=== PATIENT | male | born 1955 | race Caucasian/White ===

== ENCOUNTER 2019-01-24 06:01 | Observation (INO) | payer OTHER ==
[~2019-01-24 06:01] MED LIST: DEXAMETHASONE SOD PHOSPHATE 10 MG/ML 1 ML VIAL IV ONE; HEPARIN SODIUM,PORCINE 5,000 UNIT/ML 1 ML VIAL SQ ONE; LIDOCAINE 1% 20 ML VIAL (10MG/ML) FOR IV START INTRADERMA PRN; MIDAZOLAM 2 MG/2 ML VIAL IV PRN; ONDANSETRON 4 MG/2 ML VIAL IVP ONE; SCOPOLAMINE 1.5MG/72HR PATCH TRANSDERM ONE
[2019-01-24] MEDS: LACTATED RINGERS 1,000 ML IV SCH ×2 (06:35→16:51)
[2019-01-24] MEDS ORDERED: GLYCOPYRROLATE 0.2 MG/ML 2 ML VIAL ONE (07:41)
[2019-01-24] MEDS ORDERED: SUCCINYLCHOLINE CHLORIDE 100 MG/5 ML SYR IV ONE (07:41)
[2019-01-24] MEDS ORDERED: VECURONIUM 10 MG VIAL IV ONE (07:41)
[2019-01-24] MEDS ORDERED: PROPOFOL 10 MG/ML 20 ML VIAL IV ONE (07:41)
[2019-01-24] MEDS ORDERED: NEOSTIGMINE 1 MG/ML 10 ML VIAL ONE (07:41)
[2019-01-24] MEDS ORDERED: fentaNYL (PF) 50 MCG/ML 2 ML AMP ONE (07:41)
[2019-01-24] MEDS ORDERED: MIDAZOLAM 2 MG/2 ML VIAL ONE (07:41)
[2019-01-24] MEDS ORDERED: LIDOCAINE 1% INJ 10MG/ML (20 ML MDV) ONE (07:41)
--- NOTE | 2019-01-24 07:53 | P.GSHP ---
History of Present Illness H&P Date: 01/24/19 Chief Complaint: Umbilical hernia This is a 64-year-old male who presents today for laparoscopic robotic-assisted repair of umbilical hernia. Patient developed a tender mass of the umbilicus. Past Medical History Past Medical History: Hypertension, Thyroid Disorder History of Any Multi-Drug Resistant Organisms: None Reported Past Surgical History: Hernia Repair Past Anesthesia/Blood Transfusion Reactions: No Reported Reaction Past Psychological History: No Psychological Hx Reported Smoking Status: Never smoker Past Alcohol Use History: None Reported Past Drug Use History: None Reported - Past Family History Mother Family Medical History: No Reported History Medications and Allergies Home Medications Medication Instructions Recorded Confirmed Type Levothyroxine Sodium [Synthroid] 50 mcg PO QAM 01/18/19 01/24/19 History amLODIPine BESYLATE/BENAZEPRIL 1 cap PO BID 01/18/19 01/24/19 History [Lotrel 5-20 MG] Allergies Allergy/AdvReac Type Severity Reaction Status Date / Time codeine AdvReac Nausea Verified 01/24/19 06:19 Surgical - Exam Vital Signs Temp Pulse Resp BP Pulse Ox 98.6 F 83 18 144/87 95 01/24/19 06:33 01/24/19 06:33 01/24/19 06:33 01/24/19 06:33 01/24/19 06:33 - General well developed, well nourished, no distress - Eyes PERRL - ENT normal pinna - Neck no masses - Respiratory normal expansion - Cardiovascular Rhythm: regular - Abdomen Abdomen: soft, non tender Hernia: umbilical (3 cm) Assessment and Plan Assessment: Umbilical hernia. We'll perform laparoscopic robotic-assisted repair.
[2019-01-24] MEDS ORDERED: BUPIVACAIN-EPI 0.25%-1:200,000 30 ML VIAL SQ ONE ×2 (07:55→08:13)
--- NOTE | 2019-01-24 09:05 | P.OP ---
Date of Procedure: 01/24/19 Preoperative Diagnosis: Umbilical hernia Postoperative Diagnosis: Incarcerated umbilical hernia Procedure(s) Performed: Laparoscopic robotic Incarcerated umbilical hernia Partial omentectomy Anesthesia: COURTNEYA Surgeon: Rah Lange Estimated Blood Loss (ml): 5 Pathology: other (Incarcerated fat and omentum) Condition: stable Disposition: PACU Description of Procedure: The patient was placed on the operating table in the supine position. He received general anesthesia. His abdomen was prepped and draped usual fashion. Using a 5 mm optical trocar under direct visualization the peritoneal cavity was entered in the left upper quadrant. The abdomen was then insufflated. The laparoscope was placed back into the perineal cavity. Next a 8 mm robotic trocar was placed in the left lower quadrant and a 12 mm robotic trocar was placed in the left lateral position. The original 5 mm trocar was exchanged for a 8 mm robotic trocar. The patient's placed in the left side up position. And the patient was undocked the robot. The umbilical hernia was visualized. Using hook cautery the peritoneum over the umbilical hernia was excised. The incarcerated fat and omentum was dissected using the hook cautery and sent to pathology. The fascial opening was repaired using 0V LOC suture. Next a piece of 11 cm round ventral light ST mesh was placed into the. Cavity and secured with 2 OV lock suture. The patient was undocked the robot. The needles were retrieved. The fascia of the 12 mm trocar site was closed with 0 Ethibond suture. Skin was closed interrupted 3-0 Monocryl suture. Dermabond dressings was applied. Patient top procedure well and was sent to recovery room stable condition.
[2019-01-24] MEDS: HYDROmorphone 0.5 MG/0.5 ML SYRINGE IVP PRN ×4 (09:18→19:55)
[2019-01-24] MEDS: fentaNYL (PF) 50 MCG/ML 2 ML AMP IVP ONE ×2 (09:30→09:39)
[2019-01-24] MEDS ORDERED: HYDROmorphone 0.5 MG/0.5 ML SYRINGE IVP ONE ×2 (10:45→11:15)
[2019-01-24] MEDS ORDERED: HYDROcodone/APAP 5-325MG 1 EACH TAB PO ONE (12:54)
[2019-01-24 16:19] VITALS: BMI 24.7
[2019-01-24] MEDS ORDERED: NALOXONE 0.4 MG/ML 1 ML VIAL IV PRN (16:23)
[2019-01-24] MEDS ORDERED: METOCLOPRAMIDE 5 MG/ML 2 ML VIAL IVP PRN (16:23)
[2019-01-24] MEDS ORDERED: LACTATED RINGERS 1,000 ML IV ONE (16:23)
[2019-01-24] MEDS: ONDANSETRON 4 MG/2 ML VIAL IVP PRN (16:56)
[2019-01-24] MEDS: amLODIPine 5 MG TAB PO SCH (19:55)
[2019-01-25] MEDS: ONDANSETRON 4 MG/2 ML VIAL IVP PRN (01:06)
[2019-01-25] MEDS: HYDROmorphone 0.5 MG/0.5 ML SYRINGE IVP PRN ×2 (01:06→11:10)
[2019-01-25] MEDS: LEVOTHYROXINE 50 MCG TAB PO SCH (05:38)
[2019-01-25] MEDS: HYDROcodone/APAP 5-325MG 1 EACH TAB PO PRN ×2 (07:35→18:51)
[2019-01-25] MEDS: amLODIPine 5 MG TAB PO SCH ×2 (07:37→20:32)
[2019-01-25] MEDS: ENOXAPARIN 40 MG/0.4 ML SYRINGE SQ SCH (07:37)
[2019-01-25] MEDS: LISINOPRIL 20 MG TAB PO SCH (07:37)
--- NOTE | 2019-01-25 11:42 | P.PN ---
Subjective Progress Note Date: 01/25/19 CHIEF COMPLAINT: Umbilical hernia HISTORY OF PRESENT ILLNESS: Patient is status post laparoscopic robotic repair of incarcerated umbilical hernia. Postop day #1. Patient is tolerating diet without nausea or vomiting. He continues to report significant abdominal pain this morning. Vital signs stable. PHYSICAL EXAM: VITAL SIGNS: Reviewed. GENERAL: Well-developed in no acute distress. HEENT: No sclera icterus. Extraocular movements grossly intact. Moist buccal mucosa. Head is atraumatic, normocephalic. ABDOMEN: Soft. Nondistended. Surgical sites clean dry and intact without drainage or signs of infection. NEUROLOGIC: Alert and oriented. Cranial nerves II through XII grossly intact. ASSESSMENT: 1. Status post upper septic robotic repair of incarcerated umbilical hernia PLAN: 1. Continue diet as tolerated 2 . Pain control 3. Incentive spirometry 4. Activity as tolerated 5. Discharge home tomorrow Nurse practitioner note has been reviewed by physician. Signing provider agrees with the documented findings, assessment, and plan of care. Objective - Vital Signs Vital signs: Vital Signs Temp 97.4 F L 01/25/19 07:00 Pulse 60 01/25/19 07:00 Resp 16 01/25/19 08:00 BP 136/77 01/25/19 07:00 Pulse Ox 92 L 01/25/19 07:00 Intake & Output 01/24/19 01/25/19 01/25/19 18:59 06:59 18:59 Intake Total 2049 Output Total 5 675 550 Balance 5 -675 -550 Intake: IV 2049 Output: Urine 675 550 Estimated Blood Loss 5 Other: Voiding Method Urinal Toilet Urinal # Voids 1
[2019-01-25] MEDS: KETOROLAC 30 MG/ML 1 ML VIAL IVP PRN ×2 (15:42→22:09)
[2019-01-25] MEDS: LACTATED RINGERS 1,000 ML IV SCH (20:33)
--- NOTE | 2019-01-25 21:56 | P.CONS ---
History of Present Illness - Reason for Consult Consult date: 01/25/19 - History of Present Illness Patient is a pleasant 64-year-old white male who admitted to the hospital status post laparoscopic robotic-assisted umbilical hernia repair. Patient presented to the office earlier with a painful reproducible umbilical hernia which seem to be enlarging over the past several months. Elected to undergo robotic-assisted surgery today and is doing quite well. He is healing with no particular complaints at this time he is on clear liquid diet and seems to be tolerating well. Review of Systems GENERAL: Patient denies fever. Denies chills. EYES: Denies blurred vision. Denies vision changes. Denies eye pain. EARS, NOSE, MOUTH, & THROAT: Denies headache. Denies sore throat. Denies ear pain. RESPIRATORY: Denies cough. Denies shortness of breath. Denies sputum production. Denies hemoptysis. CARDIOVASCULAR: Denies chest pain or pressure. Denies palpitations. Denies arrhythmias. Admits to hypertension GASTROINTESTINAL: Denies abdominal pain. Denies diarrhea. Denies constipation. Denies nausea. Denies vomiting. Denies heartburn. Denies blood in the stool. GENITOURINARY: Denies urinary frequency. Denies burning. Denies dysuria. Denies cloudy urine. Denies blood in the urine. MUSCULOSKELETAL: Denies myalgias. Denies joint swelling. Denies decreased range of motion beyond patients baseline. INTEGUMENTARY: Denies pruitis. Denies rash. PSYCHIATRIC: Denies suicidal or homicial ideations. ENDOCRINE: Denies weight change. Denies polydipsia. Denies polyuria. Admits to underactive thyroid. HEMATOLOGIC: Denies bleeding disorders. Past Medical History Past Medical History: Hypertension, Thyroid Disorder History of Any Multi-Drug Resistant Organisms: None Reported Past Surgical History: Hernia Repair Past Anesthesia/Blood Transfusion Reactions: No Reported Reaction Past Psychological History: No Psychological Hx Reported Smoking Status: Never smoker Past Alcohol Use History: None Reported Past Drug Use History: None Reported - Past Family History Mother Family Medical History: No Reported History Medications and Allergies Home Medications Medication Instructions Recorded Confirmed Type Levothyroxine Sodium [Synthroid] 50 mcg PO QAM 01/18/19 01/25/19 History amLODIPine BESYLATE/BENAZEPRIL 1 cap PO BID 01/18/19 01/25/19 History [Lotrel 5-20 MG] Docusate [Colace] 100 mg PO BID #20 capsule 01/24/19 Rx HYDROcodone/APAP 5-325MG [[place] 1 tab PO Q6HR PRN #10 tab 01/24/19 Rx 5-325] Allergies Allergy/AdvReac Type Severity Reaction Status Date / Time codeine AdvReac Nausea Verified 01/25/19 17:23 Physical Exam Osteopathic Statement: *. No significant issues noted on an osteopathic structural exam other than those noted in the History and Physical/Consult. Vitals: Vital Signs Temp Pulse Pulse Resp BP Pulse Ox 01/25/19 19:10 97.8 F 62 18 135/76 92 L 01/25/19 14:29 98.2 F 58 L 16 130/78 92 L 01/25/19 08:00 16 01/25/19 07:00 97.4 F L 60 16 136/77 92 L 01/25/19 01:33 97.7 F 63 17 137/75 93 L Intake and Output 01/25/19 01/25/19 01/25/19 06:59 14:59 22:59 Intake Total 540 Output Total 475 1100 250 Balance -475 -1100 290 Intake: Oral 540 Output: Urine 475 1100 250 Other: Voiding Method Toilet Urinal # Voids 1 GENERAL: This is a -64 year-old in no apparent distress at the time of examination. Pleasant and cooperative. HEENT: Head is atraumatic, normocephalic. Pupils are equal, round, and reactive to light. Sclerae anicteric. Conjunctivae are clear. Mucus membranes of the mouth are moist. Neck is supple. RESPIRATORY: Clear to auscultation. No wheezes, rales, or rhonchi. No use of accessory muscles. Patient maintaining oxygen saturation greater than 92%. No chest wall tenderness is noted on palpation or with deep breathing. CARDIOVASCULAR: Regular rate and rhythm. S1 and S2 noted. No systolic or diastolic murmur auscultated. No JVD noted. No S3 or S4 noted. GASTROINTESTINAL: No distention noted. Abdomen soft and round. With 4 small incisions noted are clean and dry. Positive tenderness over the entire abdomen. Surgical incisions. INTEGUMENTARY: No cyanosis. No jaundice. No rashes noted. No cellulitis noted. EXTREMITIES: 2+ peripheral pulses. No evidence of peripheral edema. No calf tenderness noted. NEUROLOGIC: Cranial nerves II-XII intact. PSYCHIATRIC: Awake, alert, and oriented X 3. Appropriate affect. Intact judgement and insight. Assessment and Plan (1) Hypertension, well controlled Current Visit: Yes Status: Acute Code(s): I10 - ESSENTIAL (PRIMARY) HYPERTENSION SNOMED Code(s): 219019415 (2) Hypothyroidism Current Visit: Yes Status: Acute Code(s): E03.9 - HYPOTHYROIDISM, UNSPECIFIED SNOMED Code(s): 61915765 (3) Umbilical hernia Current Visit: Yes Status: Acute Code(s): K42.9 - UMBILICAL HERNIA WITHOUT OBSTRUCTION OR GANGRENE SNOMED Code(s): 066483566 Plan: . Continue to follow patient's progress after surgery. DVT prophylaxis pain control early ambulation remain in progress. Resume home medications. Monitor for any changes in current medical condition. End dictation
[2019-01-26] MEDS: HYDROcodone/APAP 5-325MG 1 EACH TAB PO PRN (02:00)
[2019-01-26] MEDS: LEVOTHYROXINE 50 MCG TAB PO SCH (05:10)
[2019-01-26 07:43] VITALS: BP 148/74; PULSE 68; RESP 16; TEMP 97.9
[2019-01-26] MEDS: KETOROLAC 30 MG/ML 1 ML VIAL IVP PRN (08:47)
[2019-01-26] MEDS: LISINOPRIL 20 MG TAB PO SCH (08:47)
[2019-01-26] MEDS: amLODIPine 5 MG TAB PO SCH (08:48)
[2019-01-26] MEDS: ENOXAPARIN 40 MG/0.4 ML SYRINGE SQ SCH (08:48)
--- NOTE | 2019-01-26 09:57 | P.DS ---
Providers Date of admission: 01/25/19 16:47 Expected date of discharge: 01/26/19 Attending physician: Rah Lange Consults: 01/24/19 16:23 Consult Physician Routine Consulting Provider: Raad Cordova Consult Reason/Comments: Medical management Do you want consulting provider notified?: Yes Primary care physician: Raad Cordova Hospital Course: Patient is status post laparoscopic robotic repair of incarcerated umbilical hernia. Patient is doing well postoperatively without any immediate complications. Tolerating diet without nausea or vomiting. Pain controlled on oral medications. Vital signs have been stable. He is stable for discharge home today. Please see EMR for further hospital course details. Discharge Diagnosis: 1. Status post laparoscopic robotic repair of incarcerated umbilical hernia Nurse practitioner note has been reviewed by physician. Signing provider agrees with the documented findings, assessment, and plan of care. Patient Condition at Discharge: Stable Plan - Discharge Summary Discharge Rx Participant: Yes New Discharge Prescriptions: New Docusate [Colace] 100 mg PO BID #20 capsule HYDROcodone/APAP 5-325MG [[place] 5-325] 1 tab PO Q6HR PRN #10 tab PRN Reason: Pain No Action Levothyroxine Sodium [Synthroid] 50 mcg PO QAM amLODIPine BESYLATE/BENAZEPRIL [Lotrel 5-20 MG] 1 cap PO BID Discharge Medication List Levothyroxine Sodium [Synthroid] 50 mcg PO QAM 01/18/19 [History] amLODIPine BESYLATE/BENAZEPRIL [Lotrel 5-20 MG] 1 cap PO BID 01/18/19 [History] Docusate [Colace] 100 mg PO BID #20 capsule 01/24/19 [Rx] HYDROcodone/APAP 5-325MG [[place] 5-325] 1 tab PO Q6HR PRN #10 tab 01/24/19 [Rx] Follow up Appointment(s)/Referral(s): Raad Cordova DO [Primary Care Provider] - 02/02/19 1:40 pm Rah Lange MD [STAFF PHYSICIAN] - 02/01/19 1:50 pm Patient Instructions/Handouts: *Surgery [facility] - (Anesthesia) Discharge Instructions Outpatient Surgery, Umbilical Hernia Repair (DC) Activity/Diet/Wound Care/Special Instructions: No driving while taking [place] No lifting over 10 pounds You may shower. No soaking or tub baths Very light activity until you are reevaluated at your follow up appointment with your surgeon
--- NOTE | 2019-01-26 17:02 | P.PN ---
Subjective Progress Note Date: 01/26/19 Patient is a pleasant 64-year-old white male who admitted to the hospital status post laparoscopic robotic-assisted umbilical hernia repair. Patient presented to the office earlier with a painful reproducible umbilical hernia which seem to be enlarging over the past several months. Elected to undergo robotic-assisted surgery today and is doing quite well. He is healing with no particular complaints at this time he is on clear liquid diet and seems to be tolerating well. 01/26/2019 pain controlled. Tolerating diet with no nausea vomiting or diarrhea. Passing flatus. Vital signs stable. Afebrile. Denies lightheadedness dizziness or focal deficits. Denies chest pain, palpitations or shortness of breath. Objective - Vital Signs Vital signs: Vital Signs Temp 97.9 F 01/26/19 07:00 Pulse 68 01/26/19 07:00 Resp 16 01/26/19 07:00 BP 148/74 01/26/19 07:00 Pulse Ox 94 L 01/26/19 07:00 Intake & Output 01/25/19 01/26/19 01/26/19 18:59 06:59 18:59 Intake Total 1080 Output Total 1100 725 350 Balance -1100 355 -350 Intake: Oral 1080 Output: Urine 1100 725 350 Other: Voiding Method Toilet Urinal # Voids 1 - Exam GENERAL: This is a -64 year-old in no apparent distress at the time of examination. Pleasant and cooperative. HEENT: Head is atraumatic, normocephalic. Pupils are equal, round, and reactive to light. Sclerae anicteric. Conjunctivae are clear. Mucus membranes of the mouth are moist. Neck is supple. RESPIRATORY: Clear to auscultation. No wheezes, rales, or rhonchi. No use of accessory muscles. No chest wall tenderness is noted on palpation or with deep breathing. CARDIOVASCULAR: Regular rate and rhythm. S1 and S2 noted. No systolic or diastolic murmur auscultated. No JVD noted. No S3 or S4 noted. GASTROINTESTINAL: No distention noted. Abdomen soft and round. With 4 small incisions noted are clean and dry. Positive tenderness over the entire abdomen. Surgical incisions. INTEGUMENTARY: No cyanosis. No jaundice. No rashes noted. No cellulitis noted. EXTREMITIES: 2+ peripheral pulses. No evidence of peripheral edema. No calf tenderness noted. NEUROLOGIC: Cranial nerves II-XII intact. PSYCHIATRIC: Awake, alert, and oriented X 3. Appropriate affect. Intact judgement and insight. Assessment and Plan Assessment: (1) Hypertension, well controlled Current Visit: Yes Status: Acute Code(s): I10 - ESSENTIAL (PRIMARY) HYPERTENSION SNOMED Code(s): 750725295 (2) Hypothyroidism Current Visit: Yes Status: Acute Code(s): E03.9 - HYPOTHYROIDISM, UNSPECIFIED SNOMED Code(s): 81472170 (3) Umbilical hernia, status post laparoscopic robotic repair Current Visit: Yes Status: Acute Code(s): K42.9 - UMBILICAL HERNIA WITHOUT OBSTRUCTION OR GANGRENE SNOMED Code(s): 827063327 Plan: Continue on current medication regime, monitoring and symptomatically treatment. Discharge planning in progress for today as per surgery. Follow PCP in 1 week. The impression and plan of care has been dictated as directed. : I performed a history and examination of this patient, discussed the same with the dictator. I agree with the dictator's note ,documented as a scribe. Any additional findings or plans will be noted.
== END 2019-01-26 11:04 | disposition home or self-care (01) ==
LOC: OR 06:01 → 4SSUR 14:14 → OR 15:05 → 4SSUR 15:05 → OR 01-25 15:37 → 4SSUR 01-25 16:47
PROVIDERS: ADMIT Surgery; ATTEND Surgery
DX: K42.0 Umbilical hernia with obstruction, without gangrene (principal); I10 Essential (primary) hypertension; E03.9 Hypothyroidism, unspecified; Z79.890 Hormone replacement therapy; Z79.899 Other long term (current) drug therapy; Z88.5 Allergy status to narcotic agent
CPT/HCPCS: 49653; 88302; G0378 ×2; C1781; J2250; J1100; J2710; J2765; J0690; J2405 ×2; J2001; J1650 ×2; J3010; J1885 ×2; J0330; J2704; J1170 ×2

== ENCOUNTER 2023-03-02 22:49 | Emergency (ER) | payer OTHER ==
[2023-03-02 23:06] VITALS: BP 160/94; PULSE 75; RESP 18; TEMP 97.9
== END 2023-03-02 23:30 | disposition home or self-care (01) ==
LOC: SUPCPDRO 22:49 → EC 22:49
DX: Z02.83 Encounter for blood-alcohol and blood-drug test (principal)
CPT/HCPCS: 99499